=== PATIENT | male | born 1960 | race Caucasian/White ===

== ENCOUNTER 2020-08-08 08:31 | Outpatient (CLI) | payer BC, SELFPAY ==
[2020-08-08 08:50] LABS: Basophils Absolute Auto 0.1 K/mm3 (0.0-0.1); Basophils Percent Auto 1.1 % (0.2-1.2); Eosinophils Absolute Auto 0.1 K/mm3 (0-0.3); Hematocrit 44.3 % (42.0-52.0); Hemoglobin 13.2 g/dL (14.0-18.0); Immature Granulocyte Absolute 0.02 K/mm3 (0.00-0.031); Immature Granulocyte Percent A 0.4 % (0-0.5); Lymphocytes Absolute Auto 1.12 K/mm3 (0.9-3.2); Lymphocytes Percent Auto 19.9 % (18.3-44.2); Mean Corpuscular HGB Conc 29.8 g/dl (32-36); Mean Corpuscular Hemoglobin 23.2 pg (26-34); Mean Platelet Volume 9.3 fl (7.4-10.4); Monocytes Absolute Auto 0.4 K/mm3 (0.1-0.6); Monocytes Percent Auto 7.1 % (2.6-8.5); Neutrophils Absolute Auto 3.9 K/mm3 (1.3-6.7); Neutrophils Percent Auto 69.5 % (45.5-73.1); Platelet Count Result 271 k/mm3 (150-375); Red Blood Count 5.68 M/mm3 (4.6-6.20); Red Cell Distribution Width 18.6 % (11.5-14.5); White Blood Count 5.6 K/mm3 (4.5-10.0)
[2020-08-08 08:53] LABS: Blood Urea Nitrogen 40 mg/dL (8-26); Carbon Dioxide 28 mmol/L (22-30); Chloride 105 mmol/L (98-109); Estimated Glomerular Filt Rate 29; Glucose 84 mg/dL (70-105); Sodium 141 mmol/L (138-146)
[2020-08-08 08:54] LABS: Ovalocytes 1+ (NORMAL); Platelet Estimate Adequate (Adequate); Poikilocytosis 1+ (NORMAL)
[2020-08-08 12:44] LABS: Alanine Aminotransferase 25 U/L (4-50); Albumin Level 4.2 g/dL (3.5-5.1); Alkaline Phosphatase 104 U/L (38-126); Anion Gap 7 mmol/L (8-16); Aspartate Amino Transferase 28 U/L (17-59); Bilirubin,Total 0.5 mg/dL (0.2-1.3); Blood Urea Nitrogen 41 mg/dL (9-20); Calcium 9.4 mg/dL (8.4-10.2); Carbon Dioxide 26 mmol/L (22-30); Chloride 107 mmol/L (98-107); Estimated Glomerular Filt Rate 33; Glucose 86 mg/dL (75-110); Potassium 5.3 mmol/L (3.4-5.0); Sodium 140 mmol/L (137-145)
== END 2020-08-08 08:32 | disposition home or self-care (01) ==
LOC: ANHLAB 08:32
PROVIDERS: PCP Family Medicine; Visit Provider Internal Medicine Hematology & Oncology
DX: D75.1 Secondary polycythemia (principal)
CPT/HCPCS: 36415; 80048; 80053; 85025

== ENCOUNTER 2021-12-31 00:06 | Day surgery (SDC) | payer BC, SELFPAY ==
[2021-12-22 13:46] VITALS: BMI 26.3
--- NOTE | 2021-12-30 13:29 | PM.HPGS ---
History of Present Illness History of Present Illness Consent: Risks, benefits, and alternatives have been discussed and questions answered. Patient agrees to proceed with procedure. Chief complaint: neoplasm screening Narrative: Paulino Vaz is a 61 year old male Referred for colon cancer screening. Review of Systems Review of Systems: All systems reviewed & are unremarkable except as noted in HPI and below PMFSH Family History Family History Mother Cerebrovascular accident Social History Social History Social History: Smoking status: Never smoker Second hand tobacco smoke exposure: No Alcohol intake: never Substance use: never Substance use type: does not use Living arrangements: with family Gender identity (if verbalized by the patient): Male Sexual Orientation (if Verbalized by the Patient): Straight or Heterosexual Spiritual care concerns: No Meds Home Medications and Allergies Home Medications Medication Instructions Recorded Confirmed Type simvastatin 40 mg tablet 40 mg PO DAILY 11/13/19 12/22/21 History warfarin 10 mg tablet 10 mg PO DAILY 11/13/19 12/22/21 History metronidazole 0.75 % topical gel 1 applic topical BID #45 grams 03/10/20 12/22/21 Rx metoprolol tartrate 50 mg tablet 50 mg PO Q12H #180 tabs 02/04/21 12/22/21 Rx allopurinol 100 mg tablet 200 mg PO DAILY #180 tabs 08/28/21 12/22/21 Rx Allergies Allergy/AdvReac Type Severity Reaction Status Date / Time No Known Allergies Allergy Unknown Verified 12/31/21 06:23 Exam Resp: Auscultation: clear to auscultation bilaterally Cardio: Rate: regular rate Rhythm: regular rhythm GI: GI Palp: Yes Soft to palpation and No Tenderness to palpation present (GI) Assessment and Plan Assessment and plan (1) Colon cancer screening: Code(s): Z12.11 - Encounter for screening for malignant neoplasm of colon Status: Acute Assessment and Plan: Colonoscopy with possible biopsy or polypectomy or cautery or injection of substances.
[2021-12-31 06:25] VITALS: BP 134/96; PULSE 77; RESP 18; TEMP 36.2; O2SAT 100
[2021-12-31] MEDS: LACTATED RINGERS 1,000 ML 150 ML IV CONT (06:33)
--- NOTE | 2021-12-31 07:26 | P.PNAN_ITS ---
Anes - Initial Pre Proc Eval Procedure: Operation Date: 12/31/21 07:30 Proposed Procedures p Screening Colonoscopy - Maxim Pedersen MD Date/Time: 12/31/21 07:26 Surgeon: Maxim Pedersen MD Pre Op Diagnosis: neoplasm screening Patient Data Age: 61 Gender: M Height: 1.88 m Weight: 92.7 kg Last Vital Signs Temp 97.1 F L 12/31/21 06:25 Pulse 77 12/31/21 06:25 Resp 18 12/31/21 06:25 BP 134/96 H 12/31/21 06:25 Pulse Ox 100 12/31/21 06:25 O2 Del Method Room Air 12/31/21 06:25 Allergies Allergy/AdvReac Type Severity Reaction Status Date / Time No Known Allergies Allergy Unknown Verified 12/31/21 06:23 Home Medications Medication Instructions Recorded Confirmed Type simvastatin 40 mg tablet 40 mg PO DAILY 11/13/19 12/22/21 History warfarin 10 mg tablet 10 mg PO DAILY 11/13/19 12/22/21 History metronidazole 0.75 % topical gel 1 applic topical BID #45 grams 03/10/20 12/22/21 Rx metoprolol tartrate 50 mg tablet 50 mg PO Q12H #180 tabs 02/04/21 12/22/21 Rx allopurinol 100 mg tablet 200 mg PO DAILY #180 tabs 08/28/21 12/22/21 Rx Patient hx anesthesia problems: none Family hx anesthesia problems: none Results Review: All pre-operative results and documents have been reviewed as part of the pre- operative evaluation. [facility] Family History Family History Mother Cerebrovascular accident Social History Social History Social History: Smoking status: Never smoker Second hand tobacco smoke exposure: No Alcohol intake: never Substance use: never Substance use type: does not use Living arrangements: with family Gender identity (if verbalized by the patient): Male Sexual Orientation (if Verbalized by the Patient): Straight or Heterosexual Spiritual care concerns: No Anes - Eval Final PreProcedure Day of Procedure 12/31/21 07:26 Patient weight: normal Heart: regular rate and rhythm Lungs: clear to auscultation Airway: Mallampati scale class II Neurological: alert and oriented Last oral intake: >/= 8 hours ASA classification: III Emergent: no Anesthetic plan: proceed Anesthesia type and monitoring: general GIVS and standard monitoring Results Review: All pre-operative results and documents have been reviewed as part of the pre- operative evaluation. Informed Consent: The patient's anesthetic plan and its attendant risks and benefits were discussed with the patient/family/POA. Questions were solicited and answers provided to the satisfaction of the patient/family/POA.
[2021-12-31] MEDS: SIMETHICONE ORAL SUSPENSION 20 MG/0.3 ML 30 ML BOTTLE 0.6 ML IRRIGATION (07:40)
[2021-12-31 07:51] VITALS: BP 119/90; PULSE 72; RESP 14; O2SAT 98
[2021-12-31 08:01] VITALS: BP 120/84; PULSE 69; RESP 13; O2SAT 98
[2021-12-31 08:11] VITALS: BP 116/79; PULSE 84; RESP 16; O2SAT 100
== END 2021-12-31 08:17 | disposition home or self-care (01) ==
PROVIDERS: PCP Family Medicine; Visit Provider Internal Medicine Gastroenterology
PROC: 0DJD8ZZ Inspection of Lower Intestinal Tract, Via Natural or Artificial Opening Endoscopic (ICD-10-PCS; CPT 45378; principal; 2021-12-31 07:30)
DX: Z12.11 Encounter for screening for malignant neoplasm of colon (principal)
CPT/HCPCS: 45378; J2704; J7120

== ENCOUNTER 2022-04-20 16:32 | Outpatient (CLI) | payer BC, SELFPAY ==
--- NOTE | ~2022-04-20 | US_ITS ---
EXAMINATION: US venous doppler [facility] DATE: 04/20/2022 17:08 INDICATION: Bilateral lower extremity pain and swelling. TECHNIQUE: Grayscale images without and with compression and Doppler images of the bilateral lower ex tremity veins were obtained. COMPARISON: None FINDINGS: The right common femoral vein, profunda (deep) femoral vein, femoral vein, popliteal vein, peroneal v ein, posterior tibial veins, gastrocnemius vein, and greater saphenous vein are patent. Occlusive thrombus from the left mid superficial femoral vein down to the level of the left calf vein s. The left common femoral vein, profunda femoral vein, and proximal femoral vein are patent. IMPRESSION: 1. Occlusive left lower extremity deep venous thrombosis extending from the mid superficial femoral vein to the calf. Results reported telephonically to Alex Ram PA-C by Dr. Mccoy at 5:15 PM on 04/20/2022. Reviewed, dictated and finalized at location K. [facility] IMPRESSION: 1. Occlusive left lower extremity deep venous thrombosis extending from the mi d superficial femoral vein to the calf. Results reported telephonically to Alex Ram PA-C by Dr. Mccoy at 5:15 PM o n 04/20/2022.
== END 2022-04-20 16:33 | disposition home or self-care (01) ==
LOC: ANHIMG 16:33
PROVIDERS: PCP Family Medicine; Visit Provider Physician Assistant
DX: I82.412 Acute embolism and thrombosis of left femoral vein (principal); M79.89 Other specified soft tissue disorders; Z86.711 Personal history of pulmonary embolism; Z79.01 Long term (current) use of anticoagulants
CPT/HCPCS: 93970

== ENCOUNTER 2022-04-21 11:08 | Outpatient (CLI) | payer BC, SELFPAY ==
[2022-04-21 12:01] LABS: INR 2.6; Prothrombin Time 26.8 Seconds (11.1-14.7)
== END 2022-04-21 11:09 | disposition home or self-care (01) ==
LOC: ANHLAB 11:09
PROVIDERS: PCP Family Medicine; Visit Provider Physician Assistant
DX: I82.402 Acute embolism and thrombosis of unspecified deep veins of left lower extremity (principal); Z79.01 Long term (current) use of anticoagulants
CPT/HCPCS: 36415; 85610

== ENCOUNTER 2022-05-07 12:33 | Outpatient (CLI) | payer BC, SELFPAY ==
[2022-05-07 13:11] LABS: Basophils Absolute Auto 0.1 K/mm3 (0.0-0.1); Basophils Percent Auto 1.4 % (0.2-1.2); Eosinophils Absolute Auto 0.1 K/mm3 (0-0.3); Hematocrit 53.4 % (42.0-52.0); Hemoglobin 16.3 g/dL (14.0-18.0); Immature Granulocyte Absolute 0.04 K/mm3 (0.00-0.031); Immature Granulocyte Percent A 0.6 % (0-0.5); Lymphocytes Absolute Auto 1.51 K/mm3 (0.9-3.2); Lymphocytes Percent Auto 23.2 % (18.3-44.2); Mean Corpuscular HGB Conc 30.5 g/dl (32-36); Mean Corpuscular Hemoglobin 26.4 pg (26-34); Mean Corpuscular Volume 86.5 fl (80-100); Mean Platelet Volume 9.5 fl (7.4-10.4); Monocytes Absolute Auto 0.6 K/mm3 (0.1-0.6); Monocytes Percent Auto 9.8 % (2.6-8.5); Neutrophils Absolute Auto 4.1 K/mm3 (1.3-6.7); Platelet Count Result 222 k/mm3 (150-375); Red Blood Count 6.17 M/mm3 (4.6-6.20); Red Cell Distribution Width 17.2 % (11.5-14.5); White Blood Count 6.5 K/mm3 (4.5-10.0)
[2022-05-07 13:20] LABS: INR 1.1; Prothrombin Time 14.2 Seconds (11.1-14.7)
== END 2022-05-07 12:34 | disposition home or self-care (01) ==
PROVIDERS: PCP Family Medicine; Visit Provider Internal Medicine Hematology & Oncology
DX: D68.59 Other primary thrombophilia (principal)
CPT/HCPCS: 36415; 85025; 85610

== ENCOUNTER 2022-07-12 08:38 | Outpatient (CLI) | payer BC, SELFPAY ==
--- NOTE | ~2022-07-12 | US_ITS ---
EXAMINATION: US venous doppler [facility] DATE: 07/12/2022 09:19 INDICATION: Patient currently anticoagulated for acute deep venous thrombosis of the proximal veins o f the left lower limb. TECHNIQUE: Grayscale ultrasound images without and with compression and Doppler ultrasound images of the left lower extremity veins were obtained. COMPARISON: None. FINDINGS: There is residual nonocclusive noncompressible deep venous thrombosis beginning in the mid left super ficial femoral vein extending distally into the popliteal vein and paired peroneal veins at the calf. The left gastrocnemius vein also contains noncompressible thrombus, unclear whether occlusive or non occlusive. The visualized portions of left common femoral vein, profunda (deep) femoral vein, posteri or tibial veins and greater saphenous vein outflow are patent. IMPRESSION: 1. Persistent now primarily nonocclusive appearing residual deep venous thrombosis in the mid to dis alireza left femoral, popliteal, peroneal and gastrocnemius veins with resolution of thrombus previously seen in the left profunda femoral, proximal femoral and posterior tibial veins. Reviewed, dictated and finalized at location A. IMPRESSION: 1. Persistent now primarily nonocclusive appearing residual deep venous thromb osis in the mid to distal left femoral, popliteal, peroneal and gastrocnemius v eins with resolution of thrombus previously seen in the left profunda femoral, proximal femoral and posterior tibial veins.
== END 2022-07-12 08:39 | disposition home or self-care (01) ==
PROVIDERS: PCP Family Medicine; Visit Provider Internal Medicine Hematology & Oncology
DX: I82.412 Acute embolism and thrombosis of left femoral vein (principal); I82.432 Acute embolism and thrombosis of left popliteal vein; I82.452 Acute embolism and thrombosis of left peroneal vein; I82.462 Acute embolism and thrombosis of left calf muscular vein
CPT/HCPCS: 93971

== ENCOUNTER → 2022-07-27 10:02 | Outpatient (CLI) | payer BC, SELFPAY ==
--- NOTE | ~2022-07-27 | XR_ITS ---
EXAMINATION: XR lumbar spine 2-3V DATE: 07/27/2022 10:39 INDICATION: Low back pain TECHNIQUE: Anteroposterior and lateral views of the lumbar spine, and cone-down lateral view of the l umbosacral junction were obtained. COMPARISON: 07/04/2011 FINDINGS: Bone alignment is normal. There is no fracture. The vertebral body heights and intervertebr al disc spaces are maintained. Small degenerative osteophytes project from the anterior endplates of multiple vertebral bodies. There is mild to moderate facet joint osteoarthritis of the lower lumbar s pine. A large volume of colonic stool is present. IMPRESSION: 1. Mild lumbar spondylosis without acute findings. Reviewed, dictated and finalized at location L.
--- NOTE | ~2022-07-27 | XR_ITS ---
EXAMINATION: XR hip BI 2V w AP pelvis DATE: 07/27/2022 10:39 INDICATION: Right hip pain TECHNIQUE: AP view of the pelvis and two views of each hip were obtained. COMPARISON: None. FINDINGS: There is mild osteoarthritis of the hips. Bone alignment is normal. There is no fracture. T here are phleboliths of the pelvis. Calcifications are noted in the prostate. IMPRESSION: 1. Mild osteoarthritis of the hips. Reviewed, dictated and finalized at location L.
== END ==
PROVIDERS: PCP Family Medicine; Visit Provider Physician Assistant
DX: M54.50 Low back pain, unspecified (principal); M43.06 Spondylolysis, lumbar region; M16.0 Bilateral primary osteoarthritis of hip
CPT/HCPCS: 72100; 73521

== ENCOUNTER 2022-12-06 12:36 | Outpatient (CLI) | payer BC, SELFPAY ==
--- NOTE | ~2022-12-06 | US_ITS ---
EXAMINATION: US venous doppler [facility] DATE: 12/06/2022 13:36 INDICATION: Acute deep vein thrombosis of left lower extremity. TECHNIQUE: Grayscale ultrasound images without and with compression and Doppler ultrasound images of the left lower extremity veins were obtained. COMPARISON: Ultrasound 07/12/2022 FINDINGS: The visualized portions of left common femoral vein, profunda (deep) femoral vein, posterior tibial v eins, and greater saphenous vein outflow are patent. There is thrombus in left femoral, popliteal, an d peroneal veins. IMPRESSION: 1. Deep vein thrombosis again seen involving left femoral, popliteal, and peroneal veins. Reviewed, dictated and finalized at location A. IMPRESSION: 1. Deep vein thrombosis again seen involving left femoral, popliteal, and ana lázaro veins.
== END 2022-12-06 12:37 | disposition home or self-care (01) ==
PROVIDERS: PCP Family Medicine; Visit Provider Internal Medicine Hematology & Oncology
DX: I82.412 Acute embolism and thrombosis of left femoral vein (principal); I82.432 Acute embolism and thrombosis of left popliteal vein; I82.452 Acute embolism and thrombosis of left peroneal vein
CPT/HCPCS: 93971

== ENCOUNTER 2023-05-19 15:33 | Outpatient (CLI) | payer BC, SELFPAY ==
--- NOTE | ~2023-05-19 | US_ITS ---
EXAMINATION: US venous doppler [facility] DATE: 05/19/2023 16:22 INDICATION: Recent acute deep venous necrosis of the left lower limb TECHNIQUE: Grayscale ultrasound images without and with compression and Doppler ultrasound images of the bilateral lower extremity veins were obtained. COMPARISON: 12/06/2022 FINDINGS: The visualized portions of right common femoral vein, profunda (deep) femoral vein, femoral vein, pop liteal vein, posterior tibial veins, peroneal veins, gastrocnemius vein and greater saphenous vein ou tflow are patent. The visualized portions of left common femoral vein, profunda femoral vein, femoral vein, posterior t ibial veins, peroneal veins, gastrocnemius vein and greater saphenous vein outflow are patent. Persis tent noncompressible deep venous thrombosis in the left popliteal vein.. IMPRESSION: 1. Persistent deep venous thrombosis in the left popliteal vein. The prior thrombus in the mid to di stal left femoral and the left peroneal veins has resolved. Reviewed, dictated and finalized at location A. AL CMO IMPRESSION: 1. Persistent deep venous thrombosis in the left popliteal vein. The prior thr ombus in the mid to distal left femoral and the left peroneal veins has resolve d.
== END 2023-05-19 15:34 | disposition home or self-care (01) ==
PROVIDERS: PCP Family Medicine; Visit Provider Nurse Practitioner Family
DX: I82.432 Acute embolism and thrombosis of left popliteal vein (principal)
CPT/HCPCS: 93970

== ENCOUNTER 2023-05-24 13:05 | Outpatient (CLI) | payer BC, SELFPAY ==
[2023-05-24 13:18] LABS: Basophils Absolute Auto 0.1 K/mm3 (0.0-0.1); Eosinophils Absolute Auto 0.2 K/mm3 (0-0.3); Eosinophils Percent Auto 2.5 % (0-4.4); Hematocrit 58.2 % (42.0-52.0); Immature Granulocyte Absolute 0.06 K/mm3 (0.00-0.031); Immature Granulocyte Percent A 0.8 % (0-0.5); Lymphocytes Absolute Auto 1.38 K/mm3 (0.9-3.2); Lymphocytes Percent Auto 17.9 % (18.3-44.2); Mean Corpuscular HGB Conc 32.6 g/dl (32-36); Mean Corpuscular Hemoglobin 30.5 pg (26-34); Mean Corpuscular Volume 93.4 fl (80-100); Mean Platelet Volume 8.9 fl (7.4-10.4); Monocytes Absolute Auto 0.5 K/mm3 (0.1-0.6); Monocytes Percent Auto 6.2 % (2.6-8.5); Neutrophils Absolute Auto 5.5 K/mm3 (1.3-6.7); Neutrophils Percent Auto 71.6 % (45.5-73.1); Platelet Count Result 232 k/mm3 (150-375); Red Blood Count 6.23 M/mm3 (4.6-6.20); Red Cell Distribution Width 14.6 % (11.5-14.5); White Blood Count 7.7 K/mm3 (4.5-10.0)
== END 2023-05-24 13:06 | disposition home or self-care (01) ==
LOC: ANHLAB 13:06
PROVIDERS: PCP Family Medicine; Visit Provider Internal Medicine Hematology & Oncology
DX: I26.99 Other pulmonary embolism without acute cor pulmonale (principal)
CPT/HCPCS: 36415; 85025

== ENCOUNTER 2023-12-15 08:53 | Outpatient (CLI) | payer BC, SELFPAY ==
[2023-12-15 10:10] LABS: Basophils Absolute Auto 0.1 K/mm3 (0.0-0.1); Eosinophils Absolute Auto 0.2 K/mm3 (0-0.3); Hematocrit 52.2 % (42.0-52.0); Hemoglobin 16.6 g/dL (14.0-18.0); Immature Granulocyte Absolute 0.04 K/mm3 (0.00-0.031); Immature Granulocyte Percent A 0.6 % (0-0.5); Lymphocytes Percent Auto 23.8 % (18.3-44.2); Mean Corpuscular HGB Conc 31.8 g/dl (32-36); Mean Corpuscular Hemoglobin 28.8 pg (26-34); Mean Corpuscular Volume 90.5 fl (80-100); Mean Platelet Volume 9.9 fl (7.4-10.4); Monocytes Absolute Auto 0.4 K/mm3 (0.1-0.6); Monocytes Percent Auto 6.7 % (2.6-8.5); Neutrophils Absolute Auto 4.1 K/mm3 (1.3-6.7); Neutrophils Percent Auto 64.9 % (45.5-73.1); Platelet Count Result 277 k/mm3 (150-375); Red Blood Count 5.77 M/mm3 (4.6-6.20); White Blood Count 6.3 K/mm3 (4.5-10.0)
[2023-12-15 10:35] LABS: Anion Gap 11 mmol/L (4-12); Blood Urea Nitrogen 34 mg/dL (9-20); Calcium 9.3 mg/dL (8.4-10.2); Carbon Dioxide 27 mmol/L (22-30); Chloride 101 mmol/L (98-107); Estimated Glomerular Filt Rate 32; Glucose 111 mg/dL (65-110); Potassium 4.3 mmol/L (3.4-5.0); Sodium 139 mmol/L (137-145)
== END 2023-12-15 08:54 | disposition home or self-care (01) ==
LOC: ANHLAB 08:55
PROVIDERS: PCP Family Medicine; Visit Provider Internal Medicine Hematology & Oncology
DX: I82.4Y2 Acute embolism and thrombosis of unspecified deep veins of left proximal lower extremity (principal)
CPT/HCPCS: 36415; 80048; 85025

== ENCOUNTER 2023-12-22 10:49 | Emergency (ER) | payer BC, SELFPAY ==
[2023-12-22] VITALS (10 sets, daily range): BP systolic 112–184; BP diastolic 88–120; PULSE 79–108; RESP 12–25; O2SAT 99–100
--- NOTE | ~2023-12-22 | XR_ITS ---
XR abdomen gastric tube insert INDICATION: Evaluate NG tube position. TECHNIQUE: Limited KUB perform for evaluating NG tube . COMPARISON: 12/22/2023 FINDINGS: NG tube tip in the distal esophagus near the GE junction. Visualized bowel gas pattern is unremarkable.Mild gastric distention. IMPRESSION: 1: NG tube tip in the distal esophagus near the GE junction. Recommend advancement. Reviewed, dictated and finalized at location B. IMPRESSION: 1: NG tube tip in the distal esophagus near the GE junction. Recommend advance ment.
--- NOTE | ~2023-12-22 | XR_ITS ---
EXAMINATION: XR chest ET placement, XR abdomen gastric tube insert DATE: 12/22/2023 11:13 INDICATION: Endotracheal tube and orogastric tube placement TECHNIQUE: 1. Portable AP supine view of the chest was obtained. 2. Portal AP supine view of the abdomen was obtained. COMPARISON: Chest radiograph dated 11/27/2018 FINDINGS: Endotracheal tube tip 7.6 cm above the jad. The nasogastric tube can be seen coiled in the hypopha rynx. Mild opacities at the medial left lower lung zone which could represent atelectasis or pneumoni a. No pulmonary edema, pleural effusion or pneumothorax. Cardiomediastinal silhouette is normal. No d ilated loops of gas-filled bowel in the abdomen. IMPRESSION: 1. Endotracheal tube tip 7.6 cm above the jad. Consider advancement by 5 cm. 2. Nasogastric tube coiled in the hypopharynx. Recommend withdrawal and report advancement. 3. Opacities at the medial left lower lung zone which could represent atelectasis or pneumonia. Reviewed, dictated and finalized at location A. IMPRESSION: 1. Endotracheal tube tip 7.6 cm above the jad. Consider advancement by 5 cm. 2. Nasogastric tube coiled in the hypopharynx. Recommend withdrawal and report advancement. 3. Opacities at the medial left lower lung zone which could represent atelectas is or pneumonia.
--- NOTE | ~2023-12-22 | CT_ITS ---
EXAMINATION: CT brain wo con DATE: 12/22/2023 11:26 INDICATION: 36 hours of headache and more recent fall TECHNIQUE: Computed tomography (CT) of the head was performed without intravenous contrast. Sagittal and coronal reconstructions were performed. The mA was adjusted according to patient size. Iterative reconstruction technique was employed. The dose-length product was 605.33 mGy-cm. COMPARISON: head CT dated 07/04/2011 FINDINGS: No fracture. There is a large subarachnoid hemorrhage centered along the sylvian fissures extending i nto some of the adjacent sulci of the right frontal, parietal and temporal lobes. There is edema surr ounding multiple more lobular regions of likely intraparenchymal hemorrhage in the right temporal lob e. There is decreased attenuation with local loss of arias-white matter differentiation in the right t emporal lobe surrounding the hemorrhage. This most likely is related to edema related to the hemorrha ge although differential would include hemorrhagic transformation related to acute infarct or underly ing mass. Ventricles are normal and symmetric. No midline shift. Changes of bilateral intraocular latasha s replacement. The orbits, paranasal sinuses and mastoid air cells are normal. IMPRESSION: 1. Intracranial hemorrhage of indeterminate etiology with subarachnoid hemorrhage in the right cerebr al hemisphere centered along the sylvian fissure and small region of intraparenchymal hemorrhage in t he right temporal lobe. Dr. Perez discussed these findings with Dr. Cruz at 11:27 AM. 2. Decreased attenuation with loss of arias-white matter differentiation in the right temporal lobe aggarwal rrounding the hemorrhage which could represent secondary edema although could not exclude underlying infarct or malignancy as an etiology for the hemorrhage. Would consider follow-up pre and postcontras t MRI when clinically appropriate. Reviewed, dictated and finalized at location A. IMPRESSION: 1. Intracranial hemorrhage of indeterminate etiology with subarachnoid hemorrha ge in the right cerebral hemisphere centered along the sylvian fissure and smal l region of intraparenchymal hemorrhage in the right temporal lobe. Dr. Garcia t discussed these findings with Dr. Cruz at 11:27 AM. 2. Decreased attenuation with loss of arias-white matter differentiation in the right temporal lobe surrounding the hemorrhage which could represent secondary edema although could not exclude underlying infarct or malignancy as an etiolog y for the hemorrhage. Would consider follow-up pre and postcontrast MRI when cl inically appropriate.
--- NOTE | 2023-12-22 10:56 | PC.NURSE ---
etomidate 20 [facility] 100 @ 8300
--- NOTE | 2023-12-22 10:57 | ECG_ITS ---
Test Date: 2023-12-22 10:56:21 Measurements Intervals [place] Rate: 115 P: 0 NM: 0 QRS: 76 QRSD: 93 T: 62 QT: 323 QTc: 448 Interpretive Statements ATRIAL FIBRILLATION WITH RAPID VENTRICULAR RESPONSE SEPTAL MYOCARDIAL INFARCTION , PROBABLY OLD [40+ ms Q WAVE IN V1/V2] NONSPECIFIC T-WAVE ABNORMALITY No previous ECG available for comparison Electronically Signed On 12-22-2023 13:27:08 CDT by Jeyson Hayes M.D.
--- NOTE | 2023-12-22 11:01 | ED.FALL ---
HPI - Fall General Chief Complaint: Fall Stated Complaint: ?seizure, unresponsive Time Seen by Provider: 12/22/23 10:51 History of Present Illness HPI Narrative: 63-year-old male presents to the emergency department by EMS for evaluation after having a fall. patient's family heard a thump and found the patient upstairs and unresponsive. Only states that the patient does take Eliquis and metoprolol for AFib with RVR. Family states patient has had a headache for the last 36 hours. Upon arrival to the emergency department patient was unresponsive with eyes deviated to the left. Related Data Allergies Allergy/AdvReac Type Severity Reaction Status Date / Time RADHA Inhibitors AdvReac Cough Verified 12/22/23 11:49 Review of Systems Review of Systems: ROS unobtainable: Yes unobtainable due to medical condition Exam Narrative: APPEARANCE: Well appearing, no pain, no distress, well-nourished. HEAD: normocephalic, atraumatic. EYES: PERRLA/EOMI, conjunctivae clear. NOSE: Normal no drainage EARS:TMS clear with good light reflex. THROAT: Pharynx clear, no exudate. NECK: Supple. No adenopathy, no masses. RESPIRATORY: Airway patent, respirations nonlabored. Clear to auscultation bilaterally, no rales, rhonchi, wheezing. CARDIOVASCULAR: Regular rate and rhythm without murmurs rubs or gallops. ABDOMINAL: Soft, nontender, nondistended, normal bowel sounds MUSCULOSKELETAL: Moves all extremities. Strength/ROM intact, No edema, No calf tenderness. NEURO: Alert. Cranial nerves II through XII intact. Good gait. Good coordination SKIN: Warm, dry. Normal Color PSYCHIATRIC: Normal affect/mood. Course Course Emergency Course: patient was transferred to [facility]. Vital Signs Vital signs: Vital Signs Pulse Rate 108 H 12/22/23 10:49 Respiratory Rate 20 12/22/23 10:49 Blood Pressure 184/120 H 12/22/23 10:49 Pulse Oximetry 100 12/22/23 10:49 Oxygen Delivery Bag Valve Mask 12/22/23 10:49 Pulse Rate 83 12/22/23 12:00 Respiratory Rate 13 12/22/23 12:00 Blood Pressure 112/98 H 12/22/23 11:59 Pulse Oximetry 99 12/22/23 12:00 Oxygen Delivery Mechanical Ventilation 12/22/23 11:50 Fraction of Inspired Oxygen 60 12/22/23 11:50 Procedures Intubation Intubation #1: Intubation Time: 11:57 sedative: Etomidate paralytic: Succinylcholine Laryngoscope: fiber optic video scope Tube Size (cm): 7.5 Method of Intubation: orotracheal Number of Attempts: 1 Tube Secured Depth (cm): 23 Tube Secured Location: teeth Tube Placement Confirmation: visualized tube passing through cords, equal breath sounds bilaterally, no breath sounds over epigastrium and confirmation by capnometry Patient Tolerated Procedure: well and no complications Intubation Complications: none Additional Comments: after confirmatory imaging ET tube was advanced 5 cm MDM - Fall MDM Narrative Medical decision making narrative: 63-year-old male presents emergency department for evaluation for unresponsiveness. Patient required to be intubated shortly after arrival to the emergency department. Intubation note is included in the procedure section. Head CT did show concern for subarachnoid hemorrhage and intraparenchymal hemorrhage. And does take Eliquis. Kcentra was started prior to transfer. Case was discussed with [facility] and patient was accepted for transfer. Family was updated on the results of the workup and plan for transfer. All questions concerns were addressed. Differential Diagnosis Differential diagnosis: Likely syncope, concussion without loss of consciousness and other Lab Data Attestation: I reviewed the patient's lab results. 12/22/23 11:08 12/22/23 11:08 Labs: Lab Results 12/22/23 12/22/23 Range/Units 11:08 11:09 WBC 17.4 H (4.5-10.0) K/mm3 RBC 6.08 (4.6-6.20) M/mm3 Hgb 17.6 (14.0-18.0) g/dL Hct 57.1 H
--- NOTE | 2023-12-22 11:15 | PC.NURSE ---
4 mg ivp versed given vorb erp shahram
[2023-12-22 11:20] LABS: Basophils Absolute Auto 0.1 K/mm3 (0.0-0.1); Basophils Percent Auto 0.7 % (0.2-1.2); Eosinophils Absolute Auto 0.1 K/mm3 (0-0.3); Eosinophils Percent Auto 0.6 % (0-4.4); Hematocrit 57.1 % (42.0-52.0); Hemoglobin 17.6 g/dL (14.0-18.0); Immature Granulocyte Absolute 0.29 K/mm3 (0.00-0.031); Immature Granulocyte Percent A 1.7 % (0-0.5); Lymphocytes Percent Auto 29.8 % (18.3-44.2); Mean Corpuscular HGB Conc 30.8 g/dl (32-36); Mean Corpuscular Hemoglobin 28.9 pg (26-34); Mean Corpuscular Volume 93.9 fl (80-100); Mean Platelet Volume 10.2 fl (7.4-10.4); Monocytes Absolute Auto 1.2 K/mm3 (0.1-0.6); Monocytes Percent Auto 6.9 % (2.6-8.5); Neutrophils Absolute Auto 10.5 K/mm3 (1.3-6.7); Neutrophils Percent Auto 60.3 % (45.5-73.1); Platelet Count Result 196 k/mm3 (150-375); Red Blood Count 6.08 M/mm3 (4.6-6.20); Red Cell Distribution Width 14.9 % (11.5-14.5); White Blood Count 17.4 K/mm3 (4.5-10.0)
[2023-12-22 11:24] LABS: Add Urine Microscopic? YES; Appearance Urine Clear (Clear); Bacteria Urine None Seen /hpf; Bilirubin Urine Negative (Negative); Blood Urine 2+ (Negative); Color Urine Yellow (Yellow); Glucose Urine UA Negative (Negative); Ketones Urine Negative (Negative); Leukocyte Esterase Ur Negative LEU/UL (Negative); Nitrate Urine Negative (Negative); Protein Urine 4+ mg/dL (Negative); Specific Grav Ur 1.018 (1.001-1.035); Squamous Epithelial Cell Urine None Seen /hpf (Few); Urobilinogen Urine 0.2 mg/dL (<2.0); WBC Urine 0-5 /hpf (0-3); pH Urine 5.5 (5.0-9.0)
[2023-12-22] MEDS: MIDAZOLAM HCL (*CRX) 2 MG/2 ML VIAL 4 MG IV PUSH (11:30)
[2023-12-22 11:31] LABS: INR 1.4; Prothrombin Time 17.7 Seconds (11.1-14.7)
[2023-12-22 11:32] LABS: Partial Thromboplastin Time 28.7 Seconds (22.3-36.8)
--- NOTE | 2023-12-22 11:35 | PC.NURSE ---
30 mgx 3 of propofol given ivp by Andrea DAVIES in route to and from CT Scan
[2023-12-22 11:39] LABS: Alanine Aminotransferase 27 U/L (6-50); Albumin Level 5.1 g/dL (3.5-5.1); Alkaline Phosphatase 93 U/L (38-126); Anion Gap 30 mmol/L (4-12); Aspartate Amino Transferase 35 U/L (17-59); Bilirubin,Total 1.5 mg/dL (0.2-1.3); Blood Urea Nitrogen 27 mg/dL (9-20); CRP 2.8 mg/dL (<1.0); Calcium 10.1 mg/dL (8.4-10.2); Carbon Dioxide 11 mmol/L (22-30); Chloride 98 mmol/L (98-107); Estimated CRCL calculation 33 ml/min; Estimated Glomerular Filt Rate 30; Glucose 173 mg/dL (65-110); Potassium 4.5 mmol/L (3.4-5.0); Sodium 139 mmol/L (137-145)
[2023-12-22] MEDS: PROPOFOL IV EMULSION 100 ML 2.7 MG IV CONT (11:41)
[2023-12-22 11:42] LABS: Troponin I < 0.012 ng/mL (0.000-0.034)
--- NOTE | 2023-12-22 11:47 | PC.NURSE ---
1138 [facility] called 1141 [facility] accepted standby 1145 [facility] accepted flight to [facility] ER ETA 8min 1145 Security notified of [employer]
[2023-12-22] MEDS: levETIRAcetam 1000MG/NACL100ML 1,000 MG/100 ML BAG 400 MG IVPB (11:54)
[2023-12-22] MEDS: SODIUM CHLORIDE 0.9% IV 1,000 ML 999 ML (12:08)
--- NOTE | 2023-12-22 12:09 | PC.NURSE ---
[facility] intubated at 1058 7.5 tube 29 at the lip by Dr Anthony ALVARADO LEFT NARE 70
== END 2023-12-22 12:30 | disposition short-term general hospital (02) ==
PROVIDERS: Emergency Provider Emergency Medicine; PCP Family Medicine
DX: S06.6X9A Traumatic subarachnoid hemorrhage with loss of consciousness of unspecified duration, initial encounter (principal); S06.349A Traumatic hemorrhage of right cerebrum with loss of consciousness of unspecified duration, initial encounter; I48.91 Unspecified atrial fibrillation; Z79.01 Long term (current) use of anticoagulants; R94.31 Abnormal electrocardiogram [ECG] [EKG]; R91.8 Other nonspecific abnormal finding of lung field; W19.XXXA Unspecified fall, initial encounter
CPT/HCPCS: 31500; 36415; 70450; 80053; 81001; 84484; 85025; 85610; 85730; 86140; 93005; 96365; 96367; 96375; 99291; J0330; J1953; J2250; J2704; J7030; J7168

== ENCOUNTER 2024-01-26 11:00 | Outpatient (RCR) | payer BC, SELFPAY ==
--- NOTE | 2024-01-25 13:20 | PTOPEVAL1 ---
Assessment and note entered by Janey Fields, PT Evaluation Information Assessment Status Evaluation ICD-10 Condition Codes (PT) Difficulty Walking R26.2,R26.9 Other ICD-10 Condition Codes ( ICH, seizures PT) Onset Dec 22, 2023 Subjective Information seizures with ICH, hospitalized with intubation, aspiration pneumonia; lost 15# during hospitalization; d/c from hospital on Jan 10 and then 5 days at in pt rehab; returned to home/ no [facility] therapy services; home with - reports indep with bathing, dressing, light home tasks R hand dominant NO driving due to seizure-- on meds; monitoring BP 2x/day due to changes in meds and swelling of LE's Activity: active, 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 His , Ariadna, was present and supportive to pt. He has not returned to driving, due to seizure and meds. And has not returned to his fitness exercises at the gym. He states he is better, but does not have his stamina and endurance back yet. With the evaluation: 5 reps sit/stand time and 2 minute walking test distances are WNL. Hamilton balance score of 52/56--he has difficulty with single leg and tandem standing. He has decreased trunk and hip stability with standing dynamic balance activities. Skilled PT services are indicated for higher level balance activities, to return to prior activity level and education for HEP and progression of fitness activity. Plan of Care Interventions Neuro Re-education,Patient/Caregiver Education, Therapeutic Activities,Therapeutic Exercise PT Services Indicated Yes Treatment Frequency and 1x/wk for 6 weeks Duration These treatments will address the objective and functional deficits as defined above. The patient will be advanced safely and appropriately in order for the patient to progress towards his/her prior level of function. Additional exercises will be introduced and as well as a comprehensive home exercise program upon discharge, if needed, ?to ensure carryover of functional gains achieved in the clinic. This treatment plan has been reviewed and agreement upon by the patient.
--- NOTE | 2024-01-26 11:30 | OTOPEVDC ---
Assessment and note entered by LYNDSEY Rodriguez/Qasim, CHT Evaluation Information & Discharge Notification 01/26/24 Assessment Status Evaluation Diagnosis ICH, seizures Subjective Information Seizures with ICH, hospitalized with intubation, aspiration pneumonia Discharged from hospital on Jan 10 and then 5 days at inpatient rehab, returned to home, no [facility] therapy services He lives at home with his . He reports returning to being independent with ADLs and light home tasks. He is right handed. He reports no functional limitations at this time. He is back to work. Just dependent on transportation as he was instructed not to drive due to seizure precautions . He has a gym membership and is active. Assessment OT Clinical Summary Patient referred to OT with dx of intracranial hemorrhage and seizure. He presents with intact, functional, and symmetrical upper body and hand strength. Bilateral gross and fine motor coordination is within normal limits. He is reporting no functional limitations at this time. He is a member at a gym and plans to continue going, which will continue to improve his functional endurance and strength. No further skilled OT indicated at this time. Thank you for this referral. Plan of Care OT Services Indicated No
--- NOTE | 2024-01-26 12:37 | STOPEVDC ---
Assessment and note entered by Maribeth Wolf CERTIFIED MAINTENANCE WELDER Thank you for referring Paulino Vaz to [facility].? An evaluation has been completed. No further treatment is needed. Evaluation Information Assessment Status Evaluation Assessment Status Evaluation ICD-10 Condition Codes (ST) I69.81 Onset 12/21 Subjective Information The patient reports he had seizures on 12/21 and spent most of December in the hospital and in [facility]. He reported that at [facility], Speech Therapy addressed memory, problem solving, and deductive reasoning and patient felt he was doing fine in those areas. Reported Pain Level Pain Score 0: Self Report Pain Score 0: Self Report Pain Score 6: Self Report Additional Pain Score Comments R buttock- pain about 2/[address] Clinical Summary COGNITIVE EVALUATION This patient was seen for a Cognitive Evaluation after being diagnosed with intracranial hemorrhage and seizure. Today, the Scales of Cognitive Ability for Traumatic Brain Injury (SCATBI) was presented to assess cognitive and word-finding skills. Skills overall were judged to be grossly intact however mild deficits noted in the areas of recall of [id number] string, immediately after presented, and after 30 seconds, no distraction, and recall of visually presented information. He was shown for five seconds, line drawings of two items for each of two pictures and had difficulty finding one of two items on each picture (50% accuracy). Patient also had difficulty recalling specific words on a story given the specific instruction to Remember ... ); he recalled 5/8 items correctly. He recalled information in two other stories without deficits noted. Patient also completed sequencing, problem solving, abstract reasoning, and deductive reasoning tasks without difficulty noted. There was mild delays in response as he had to determine the last step of four steps in a visual pattern given five possible choices but did respond correctly to all 5 presented. Results suggest patient continues to have mild deficits in the areas of auditory/visual recall however, patient and both indicated that he exhibited decreased focus and attention to detail prior to this event and that his cognitive/word- finding skills are essentially within normal limits for him. No further Speech Therapy is indicated at this time. Thank you for this referral. Plan of Care ST Services Indicated No
--- NOTE | 2024-02-24 15:03 | PTOPDC ---
Assessment and note entered by Janey Fields, PT Discharge Report Assessment Status Discharge - Pt Not Present ICD-10 Condition Codes (PT) Difficulty Walking R26.2,R26.9 Other ICD-10 Condition Codes ( ICH, seizures PT) Onset Dec 22, 2023 Subjective Information pt was not seen this date. Assessment PT Clinical Summary Paulino attended the PT evaluation on January 24. And did not return for any further treatment. Discharge PT. The goals were not addressed. Plan of Care PT Services Indicated No
== END 2024-02-27 10:01 | disposition home or self-care (01) ==
LOC: ANHOT 11:00
PROVIDERS: PCP Family Medicine; Visit Provider Family Medicine
DX: R26.2 Difficulty in walking, not elsewhere classified (principal); R26.9 Unspecified abnormalities of gait and mobility
CPT/HCPCS: 96125; 97110; 97161; 97165